=== PATIENT | female | born 2000 | race Hispanic/Latino ===

== ENCOUNTER 2023-11-25 18:00 | Inpatient (IN) | payer OTHER ==
[~2023-11-25 18:00] MED LIST: Bupivacaine 0.25% HCL 30 ML VIAL ONE
[2023-11-25] MEDS: Lactated Ringer's 1,000 ML IV SCH (19:10)
[2023-11-25 19:20] VITALS: BMI 28.1
[2023-11-25] MEDS ORDERED: Tranexamic Acid 1,000 MG/10 ML VIAL IVP PRN (20:24)
[2023-11-25] MEDS ORDERED: hydrALAZINE 20 MG/ML VIAL SLOW IVP PRN (20:24)
[2023-11-25] MEDS ORDERED: Methylergonovine 0.2 MG/ML VIAL IM PRN (20:24)
[2023-11-25] MEDS ORDERED: Diphenoxylate HCl/Atropine Tablet PO PRN (20:24)
[2023-11-25] MEDS ORDERED: Lidocaine 1% (PF) 30 ML VIAL SC PRN (20:24)
[2023-11-25] MEDS ORDERED: Misoprostol 200 MCG TAB PR PRN (20:24)
[2023-11-25] MEDS ORDERED: Promethazine HCl 25 MG/ML VIAL IM PRN (20:24)
[2023-11-25] MEDS ORDERED: Carboprost 250 MCG/ML AMP IM PRN (20:24)
[2023-11-25] MEDS ORDERED: Oxytocin 30 units/NS 500 ML 500 ML IV SCH ×2 (20:30→20:45)
[2023-11-25] MEDS ORDERED: Ibuprofen 800 MG TAB PO PRN (20:34)
[2023-11-25 20:48] LABS: Hematocrit 33.9 % (34.9-44.5); Hemoglobin 11.2 g/dL (12.0-15.5); Mean Corpuscular Hemoglobin 29.1 pg (27.0-33.0); Mean Corpuscular Volume 88.1 fL (81.6-98.3); Mean Platelet Volume 11.2 fL (7.4-10.4); Platelet Count 255 10x3/uL (150-450); RBC Distribution Width 15.9 % (11.5-14.5); Red Blood Cell (RBC) Count 3.85 10x6/uL (3.90-5.03); White Blood Cell (WBC) Count 7.7 10x3/uL (3.5-10.5)
[2023-11-25] MEDS: Misoprostol 100 MCG TAB VAG SCH (21:08)
[2023-11-25 21:16] LABS: HBsAg Index 0.16 S/CO (0-0.99); Hep B Surf Ag - L&D Non-Reactive S/CO (NonReactive)
[2023-11-25 21:17] LABS: Syphilis Antibody Nonreactive (Nonreactive); Syphilis Antibody Index 0.06 S/CO (<1.00 Non-Reactive)
[2023-11-26] MEDS ORDERED: fentaNYL 50 mcg/mL 1 mL Vial SLOW IVP PRN (15:39)
[2023-11-26] MEDS: fentaNYL 50 mcg/mL 1 mL Vial ONE (15:43)
[2023-11-26] MEDS: fentaNYL/Ropivacaine Epidural 100 ML ONE (15:57)
[2023-11-26] MEDS ORDERED: Lactated Ringer's 500 ML IV PRN (16:24)
[2023-11-26] MEDS ORDERED: Moisturizing Cream (Eucerin) 113 GM JAR TOP PRN (16:24)
[2023-11-26] MEDS ORDERED: Ondansetron PF 4 MG/2 ML Vial IVP PRN (16:24)
[2023-11-26] MEDS ORDERED: Naloxone HCl 0.4 mg/ml Vial IVP PRN ×2 (16:24)
[2023-11-26] MEDS ORDERED: Acetaminophen 325 MG TAB PO PRN (16:24)
[2023-11-26] MEDS ORDERED: diphenhydrAMINE 50 MG/ML VIAL IVP PRN (16:24)
[2023-11-26] MEDS ORDERED: ePHEDrine Sulfate 50 MG/10 ML VIAL SLOW IVP PRN (16:24)
[2023-11-26] MEDS ORDERED: Promethazine HCl 25 MG/ML VIAL IM PRN (16:24)
[2023-11-26] MEDS ORDERED: fentaNYL 2 mcg/Ropivacaine 0.2% Epidural 100 ML CADD EPIDURAL SCH (16:30)
[2023-11-26] MEDS ORDERED: ACTIVE EPIDURAL FS SCH (16:30)
[2023-11-26] MEDS ORDERED: Oxytocin 30 units/NS 500 ML 500 ML IV SCH (18:15)
[2023-11-26] MEDS: Oxytocin 30 units/NS 500 ML 500 ML IV SCH (18:24)
[2023-11-26] MEDS: Ondansetron PF 4 MG/2 ML Vial IVP PRN (21:51)
[2023-11-27] MEDS ORDERED: Misoprostol 200 MCG TAB VAG PRN (00:04)
[2023-11-27] MEDS ORDERED: Lanolin Ointment 7 GM TUBE TOP PRN (00:04)
[2023-11-27] MEDS ORDERED: hydrALAZINE 20 MG/ML VIAL SLOW IVP PRN (00:04)
[2023-11-27] MEDS ORDERED: Milk Of Magnesia 30 ML UDCUP PO PRN (00:04)
[2023-11-27] MEDS ORDERED: diphenhydrAMINE 25 MG CAP PO PRN (00:04)
[2023-11-27] MEDS ORDERED: Preparation H Ointment 28 GM TUBE PR PRN (00:04)
[2023-11-27] MEDS ORDERED: Bisacodyl 10 MG SUPP PR PRN (00:04)
[2023-11-27] MEDS ORDERED: Methylergonovine 0.2 MG/ML VIAL IM PRN (00:04)
[2023-11-27] MEDS ORDERED: Oxytocin 30 units/NS 500 ML 500 ML IV SCH (00:15)
[2023-11-27] MEDS: Boostrix 0.5 ML (Tdap) VIAL (>/=7 yrs of age) IM ONE (03:16)
[2023-11-27] MEDS: Benzocaine-Menthol 82.5 ML CAN TOP PRN (03:31)
[2023-11-27 04:09] LABS: #Basophils 0.03 10x3/uL (0.0-0.2); #Eosinphils 0.01 10x3/uL (0.0-0.5); #Monocytes 1.28 10x3/uL (0.0-1.1); #Neutrophils 12.97 10x3/uL (1.5-8.4); %Basophils 0.2 % (0.0-2.0); %Eosinophils 0.1 % (0.0-6.0); %Lymphocytes 9.1 % (18.0-47.0); %Monocytes 8.1 % (0.0-10.0); %Neutrophils 82.1 % (40.0-75.0); Hematocrit 29.2 % (34.9-44.5); Hemoglobin 9.7 g/dL (12.0-15.5); Mean Corpuscular HGB CONC 33.2 g/dL (32.0-36.0); Mean Corpuscular Hemoglobin 29.1 pg (27.0-33.0); Mean Corpuscular Volume 87.7 fL (81.6-98.3); Mean Platelet Volume 10.5 fL (7.4-10.4); Platelet Count 181 10x3/uL (150-450); RBC Distribution Width 15.9 % (11.5-14.5); Red Blood Cell (RBC) Count 3.33 10x6/uL (3.90-5.03); White Blood Cell (WBC) Count 15.8 10x3/uL (3.5-10.5)
[2023-11-27] MEDS: Ibuprofen 800 MG TAB PO SCH (06:29)
[2023-11-27] MEDS: Ferrous Sulfate 325 MG TAB PO SCH (09:07)
[2023-11-27] MEDS: Docusate 100 MG CAP PO SCH (09:07)
[2023-11-28 07:38] VITALS: BP 105/56; TEMP 98.3
== END 2023-11-28 17:32 | disposition home or self-care (01) | DRG 807 ==
LOC: CSHLD 18:11 → CSHPP 11-27 03:05
PROVIDERS: ADMIT Obstetrics & Gynecology; ATTEND Obstetrics & Gynecology
PROC: 10E0XZZ Delivery of Products of Conception, External Approach (ICD-10-PCS; principal; 2023-11-26)
PROC: 0KQM0ZZ Repair Perineum Muscle, Open Approach (ICD-10-PCS; 2023-11-26)
DX: O36.5930 Maternal care for other known or suspected poor fetal growth, third trimester, not applicable or unspecified (principal); Z37.0 Single live birth; Z3A.38 38 weeks gestation of pregnancy; O70.1 Second degree perineal laceration during delivery; O99.02 Anemia complicating childbirth; Z14.1 Cystic fibrosis carrier; O99.344 Other mental disorders complicating childbirth; F32.9 Major depressive disorder, single episode, unspecified; Z79.82 Long term (current) use of aspirin
CPT/HCPCS: 36415; 51702; 85025; 85027; 86780; 86850; 86900; 86901; 87340; 88307; 99285; J0665; J2405; J2590; J3010; J7120